=== PATIENT | male | born 1980 | race American Indian/Alaskan Native ===

== ENCOUNTER 2016-09-26 01:46 | Emergency (ER) | payer OTHER ==
[2016-09-26 01:49] VITALS: BMI 23.7
[2016-09-26 01:56] VITALS: TEMP 98.1
--- NOTE | 2016-09-26 01:58 | ED PDOC ---
Arrival/HPI - General Chief Complaint: Substance Abuse Time Seen by Provider: 09/26/16 01:51 Historian: Patient, Police - History of Present Illness Narrative History of Present Illness (Text): 09/26/16 01:58 Vladislav Fu Sr is a 36 year old male, whose past medical history includes substance abuse, who presents to the ED brought in by [facility] and EMS for heroin overdose. As per police, patient was found unresponsive on the floor tonight and given Narcan in the field with immediate response. Patient is awake and alert in the ED. Patient states he does not remember the incident and admits to using IV heroin tonight. Patient states he feels fine currently. Patient denies any suicidal ideation, homicidal ideation, fever, chills, chest pain, shortness of breath, nausea, vomiting, diarrhea, urinary symptoms, back pain, neck pain, headache, dizziness, or any other complaints. Time/Duration: Other (tonight) Symptom Onset: Gradual Symptom Course: Improving Activities at Onset: Other (IV drug abuse) Context: Home Past Medical History - Provider Review Nursing Documentation Reviewed: Yes - Psychiatric Hx Depression: Yes Hx Emotional Abuse: No Hx Physical Abuse: No Hx Substance Use: Yes - Past Surgical History Past Surgical History: No Previous - Suicidal Assessment Feels Threatened In Home Enviroment: No Family/Social History - Physician Review Nursing Documentation Reviewed: Yes Family/Social History: No Known Family HX Smoking Status: Unknown If Ever Smoked Hx Alcohol Use: No Hx Substance Use: Yes Allergies/Home Meds Allergies/Adverse Reactions: Allergies No Known Allergies Allergy (Verified 06/26/12 12:15) Home Medications: Home Meds Medication Instructions Recorded Confirmed No Known Home Med 06/26/12 09/26/16 Review of Systems - Physician Review All systems were reviewed & negative as marked: Yes - Review of Systems Constitutional: Normal. absent: Fevers Eyes: Normal ENT: Normal Respiratory: Normal. absent: SOB, Cough Cardiovascular: Normal. absent: Chest Pain Gastrointestinal: Normal. absent: Abdominal Pain, Diarrhea, Nausea, Vomiting Genitourinary Male: Normal. absent: Dysuria, Frequency, Hematuria, Urinary Output Changes Musculoskeletal: Normal. absent: Back Pain, Neck Pain Skin: Normal. absent: Rash Neurological: Normal. absent: Headache, Dizziness Endocrine: Normal Hemo/Lymphatic: Normal Psychiatric: Other (+substance abuse). absent: Suicidal Ideation Physical Exam Vital Signs Reviewed: Yes Vital Signs Temp Pulse Resp BP Pulse Ox 09/26/16 05:03 100 H 14 156/86 H 94 L 09/26/16 04:05 103 H 18 105/66 94 L 09/26/16 03:35 102 H 20 112/65 95 09/26/16 02:36 95 H 18 120/83 94 L 09/26/16 01:56 98.1 F 99 H 14 120/83 96 Temperature: Afebrile Blood Pressure: Normal Pulse: Regular Respiratory Rate: Normal Appearance: Positive for: Well-Appearing, Non-Toxic, Comfortable Pain Distress: None Mental Status: Positive for: Alert and Oriented X 3 - Systems Exam Head: Present: Atraumatic, Normocephalic Pupils: Present: PERRL Extroacular Muscles: Present: EOMI Conjunctiva: Present: Normal Mouth: Present: Moist Mucous Membranes Neck: Present: Normal Range of Motion Respiratory/Chest: Present: Clear to Auscultation, Good Air Exchange. No: Respiratory Distress, Accessory Muscle Use Cardiovascular: Present: Regular Rate and Rhythm, Normal S1, S2. No: Murmurs Abdomen: Present: Normal Bowel Sounds. No: Tenderness, Distention, Peritoneal Signs Back: Present: Normal Inspection Upper Extremity: Present: Normal Inspection. No: Cyanosis, Edema Lower Extremity: Present: Normal Inspection. No: Edema Neurological: Present: GCS=15, CN II-XII Intact, Speech Normal Skin: Present: Warm, Dry, Normal Color. No: Rashes Psychiatric: Present: Alert, Oriented x 3, Normal Insight, Normal Concentration Medical Decision Making ED Course and Treatment: 09/26/16 01:58 Impression: 36 year old male brought in for heroin overdose. Differential Diagnosis include but are not limited to: substance abuse vs. overdose Plan: -- EKG -- IV fluids -- Reassess and disposition Prior Visits: Notes and results from previous visits were reviewed. Progress Notes: 09/26/16 02:04 Reviewed EKG, NSR at [address]-segment elevations or depressions, no T- wave inversions, normal intervals. - Lab Interpretations I have reviewed the lab results: Yes - EKG Interpretation Interpreted by ED Physician: Yes Type: 12 lead EKG - Medication Orders Current Medication Orders: Discontinued Medications Sodium Chloride (Sodium Chloride 0.9%) 1,000 mls @ 100 mls/hr IV .Q10H STA Stop: 09/26/16 11:58 Last Admin: 09/26/16 02:35 Dose: 100 MLS/HR eMAR Start Stop Document 09/26/16 02:35 [email or web address] (Rec: 09/26/16 02:35 [email or web address] [id number]) Intravenous Solution Start Date 09/26/16 Start Time 02:35 End Date 09/26/16 Naloxone HCl 10 mg/ Sodium (Chloride) 1,025 mls @ 61.5 mls/hr IV .[id number] ONE PRN Reason: 0.6 MG/HR Stop: 09/26/16 20:42 Last Admin: 09/26/16 04:36 Dose: Not Given Non-Admin Reason: Patient Refused ED OBSERVATION Date of observation admission: 09/26/16 Time of observation admission: 02:00 - Observation admission statement Patient is being placed in observation because:: heroin overdose - Goals of Observation Goals of observation are:: observe respiratory status - Progress Note Progress Note: 09/26/16 02:00 Pt resting comfortably, no new complaints. 09/26/16 04:00 Pt somnolent, will order Narcan, labs, alcohol level, urinalysis, urine drug screen, and CT Head. Case discussed with medical coding auditor operations architect, who is aware and agrees with plan. Case discussed with Dr. Shoemaker, who is aware and agrees with plan. Accepts pt in to hospitalist service. Pt will go to Telemetry observation for heroine overdose. 09/26/16 04:35 RN reports pt is refusing bloodwork or any further workup. - Scribe Statement The provider has reviewed the documentation as recorded by the Chasity Rosenbaum Provider Attestation: All medical record entries made by the Chasity were at my direction and personally dictated by me. I have reviewed the chart and agree that the record accurately reflects my personal performance of the history, physical exam, medical decision making, and the department course for this patient. I have also personally directed, reviewed, and agree with the discharge instructions and disposition. Disposition/Present on Arrival - Present on Arrival Any Indicators Present on Arrival: No History of DVT/PE: No History of Uncontrolled Diabetes: No Urinary Catheter: No History of Decub. Ulcer: No History Surgical Site Infection Following: None - Disposition Have Diagnosis and Disposition been Completed?: Yes Diagnosis: Substance abuse Disposition: AGAINST MEDICAL ADVICE Disposition Time: 04:00 Condition: FAIR
[2016-09-26] MEDS ORDERED: Sodium Chloride 0.9% 1,000 ML IV STA (01:59)
[2016-09-26] MEDS ORDERED: Morphine 4 mg/ml ISec IVP STA (01:59)
[2016-09-26] MEDS ORDERED: Nitroglycerin 2% Ointment Foilpak UD TOP STA (02:00)
[2016-09-26 04:39] VITALS: O2SAT 94
[2016-09-26 05:06] VITALS: BP 156/86; PULSE 100; RESP 14
--- NOTE | 2016-09-26 05:15 | CP.PCM.HP ---
<Dewayne Lamas - Last Filed: 09/26/16 05:10> History of Present Illness - History of Present Illness History of Present Illness: CC: unresponsive on the ground in the field HPI: This is a 36 yo M with PMH rheumatic heart disease with unspecified valvular damage and substance abuse who was brought in by EMS due to being found down in the field with a respiration rate of 2. Patient was given Narcan in the field nasally and via injection, and recovered promptly. He admitted to injecting 2 bags of heroin today, prior to the event, and had a bruise on his head he couldn't account for. He had no recollection of falling, and was unsure whether he struck his head. In the ED, patient remained intermittently somnolent, and was to be admitted for obs after respiratory failure 2/2 heroin overdose, but he became more alert and refused all further testing and admission, opting to leave against medical advice. PMH: as above PSH: denies FHx: denies SHx: Heroin abuser, claims to have stopped years ago and recently relapsed, 2 bags injected prior to arrival Denies tobacco, denies alcohol PMD: none Present on Admission - Present on Admission Any Indicators Present on Admission: No History of DVT/PE: No History of Uncontrolled Diabetes: No Urinary Catheter: No Review of Systems - Constitutional Constitutional: absent: Chills, Fever, Weakness - EENT Eyes: absent: Blurred Vision, Change in Vision, Spots in Vision, Loss of Vision Ears: absent: Dizziness Nose/Mouth/Throat: absent: Sore Throat, Neck Pain - Cardiovascular Cardiovascular: Dyspnea (respiration rate of 2 when found down, resolved after narcan, not present at time of exam), Syncope (found down on the ground in field , resolved with narcan, no recollection of how he ended on the ground). absent : Chest Pain, Lightheadedness - Respiratory Respiratory: Dyspnea (respiration rate of 2 when found down, resolved after narcan, not present at time of exam). absent: Cough, Hemoptysis, Pain on Inspiration - Gastrointestinal Gastrointestinal: Vomiting (in the ED once). absent: Abdominal Pain, Constipation, Diarrhea, Nausea - Genitourinary Genitourinary: absent: Difficulty Urinating, Dysuria, Flank Pain, Hematuria - Musculoskeletal Musculoskeletal: absent: Muscle Weakness, Neck Pain, Numbness, Radiating Pain into Limb - Integumentary Integumentary: absent: Pruritus, Rash - Neurological Neurological: Syncope (found down on the ground in field, resolved with narcan, no recollection of how he ended on the ground). absent: Dizziness, Numbness, Focal Weakness, Loss of Vision, Weakness - Psychiatric Psychiatric: absent: Anxiety - Endocrine Endocrine: absent: Fatigue, Palpitations Past Patient History - Past Social History Smoking Status: Unknown If Ever Smoked - PSYCHIATRIC Hx Depression: Yes Hx Emotional Abuse: No Hx Physical Abuse: No Hx Substance Use: Yes Meds Allergies/Adverse Reactions: Allergies Allergy/AdvReac Type Severity Reaction Status Date / Time No Known Allergies Allergy Verified 06/26/12 12:15 Physical Exam - Constitutional Appears: Well, Non-toxic, No Acute Distress Additional comments: lethargic/somnolent - Head Exam Head Exam: ATRAUMATIC, NORMAL INSPECTION, NORMOCEPHALIC - Eye Exam Eye Exam: EOMI, Normal appearance, PERRL. absent: Conjunctival injection, Scleral icterus Pupil Exam: NORMAL ACCOMODATION, PERRL. absent: Fixed, Irregular, Unequal - ENT Exam ENT Exam: Mucous Membranes Moist - Respiratory Exam Respiratory Exam: Clear to Auscultation Bilateral, NORMAL BREATHING PATTERN. absent: Accessory Muscle Use, Chest Wall Tenderness, Decreased Breath Sounds, Rales, Rhonchi, Wheezes, Respiratory Distress - Cardiovascular Exam Cardiovascular Exam: Tachycardia, REGULAR RHYTHM, +S1, +S2. absent: Bradycardia , Diastolic murmur, Irregular Rhythm, RRR, +S4, Systolic Murmur Additional comments: rapid rate regular rhythm - GI/Abdominal Exam GI & Abdominal Exam: Normal Bowel Sounds, Soft. absent: Diminished Bowel Sounds , Distended, Firm, Hyperactive Bowel Sounds, Hypoactive Bowel Sounds, Rigid, Tenderness - Extremities Exam Extremities exam: Positive for: normal inspection. Negative for: calf tenderness, pedal edema, tenderness - Neurological Exam Neurological exam: Alert (somnolent/lethargic but easily arousable and alert once aroused), Oriented x3 - Psychiatric Exam Psychiatric exam: Normal Affect, Normal Mood - Skin Skin Exam: Dry, Intact, Normal Color, Warm Results - Vital Signs Recent Vital Signs: Last Vital Signs Temp 98.1 F 09/26/16 01:56 Pulse 100 H 09/26/16 05:03 Resp 14 09/26/16 05:03 BP 156/86 H 09/26/16 05:03 Pulse Ox 94 L 09/26/16 05:03 Assessment & Plan - Assessment and Plan (Free Text) Assessment: This is a 36 yo M with H rheumatic heart disease with unspecified valvular damage and substance abuse who was brought in by EMS due to being found down in the field with a respiration rate of 2. He was to be admitted to Tele Obs for monitoring after Heroin overdose with near-respiratory failure, but he refused admission and elected to leave AMA. Plan: 1) Respiratory failure -likely 2/2 heroin overdose vs arrhythmia vs LA -resolved with administration of narcan, and patient admits to abusing 2 bags of heroin IV, so likely 2/2 drug abuse -sinus tachy on bedside monitor, otherwise normal; EKG ordered -Maintaining sats on 2 L NC, continue to monitor and titrate as needed -Given head bruise and no memory of possible fall, will get Head CT to rule out acute intracranial process -Narcan drip -Drug screen and alcohol level ordered -Patient denies intentional overdose, and denies desire for self-harm, so no need to consult Psych at this time Dispo: Admitted to Tele obs, but patient refusing, elects to leave AMA. Risks of leaving AMA, including withdrawal, respiratory distress, respiratory arrest, and were explained to patient, who expressed understanding but still elected to leave AMA. Forms signed by resident physician and patient, witnessed by nursing. Patient was instructed to return to the ED with new or worsening symptoms. He was then discharged AMA. - Date & Time Date: 09/26/16 Time: 05:25 Decision To Admit - Pt Status Changed To: Hospital Disposition Of: Observation - . Bed Request Type: Telemetry (Prior to being sent up from ED, he elected to refuse admission and leave AMA) <Selina Shoemaker - Last Filed: 09/26/16 06:14> Results - Vital Signs Recent Vital Signs: Last Vital Signs Temp 98.1 F 09/26/16 01:56 Pulse 100 H 09/26/16 05:03 Resp 14 09/26/16 05:03 BP 156/86 H 09/26/16 05:03 Pulse Ox 94 L 09/26/16 05:03 Attending/Attestation - Attestation I have personally seen and examined this patient.: Yes I have fully participated in the care of the patient.: Yes I have reviewed all pertinent clinical information: Yes Notes (Text): 09/26/16 06:12 Patient was seen when he was in bed # 3 in the ER. Agree with history , physical examination , assessment and plan. Patient wanted to sign out AMA. He was explained consequences , yet chose to leave. DISCHARGE DIAGNOSIS: Heroine withdrawal. Head contusion. Non complaint. Left against medical advice.
--- NOTE | 2016-09-26 13:04 | CARD ---
APPROVED REPORT EKG Measurement Heart [id number] <Conclusion> Normal sinus rhythm Normal ECG
== END 2016-09-26 05:09 | disposition left against medical advice (07) ==
LOC: ED 01:46 → UNDOADMOB 02:00 → EROBSV 02:00 → ED 04:55
DX: F11.10 Opioid abuse, uncomplicated (principal)
CPT/HCPCS: 93005; 99285; J7040

== ENCOUNTER 2017-02-09 19:06 | Emergency (ER) | payer SELFPAY ==
[2017-02-09 19:07] VITALS: BMI 23.7
[2017-02-09 19:15] VITALS: TEMP 98.9
--- NOTE | 2017-02-09 19:24 | ED PDOC ---
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 His friend became concerned and called the police and 911 and the patient was brought to the emergency department. He was not given Narcan. He is lethargic but easily aroused. He is oriented 3. He is not interested in rehabilitation. He reports he has been tested for HIV and is negative. He injects. He denies other drugs. He is a smoker. Denies alcohol. He denies depression or suicidal or homicidal ideation. Past Medical History - Psychiatric Hx Depression: Yes Hx Emotional Abuse: No Hx Physical Abuse: No Hx Substance Use: Yes (marijuana, heroin, cocaine) - Past Surgical History Past Surgical History: No Previous - Suicidal Assessment Feels Threatened In Home Enviroment: No Family/Social History - Physician Review Nursing Documentation Reviewed: Yes Family/Social History: Unknown Family HX Smoking Status: Heavy Smoker > 10 Cigarettes Daily Hx Alcohol Use: Yes Frequency of alcohol use: Socially Hx Substance Use: Yes (marijuana, heroin, cocaine) Allergies/Home Meds Allergies/Adverse Reactions: Allergies No Known Allergies Allergy (Verified 06/26/12 12:15) Home Medications: Home Meds Medication Instructions Recorded Confirmed No Known Home Med 06/26/12 02/09/17 Review of Systems - Physician Review All systems were reviewed & negative as marked: Yes - Review of Systems Constitutional: Normal Respiratory: Normal Cardiovascular: Normal Gastrointestinal: Normal Genitourinary Male: Normal Neurological: Normal Physical Exam Vital Signs Temp Pulse Resp BP Pulse Ox 02/09/17 19:14 98.9 F 80 14 107/52 L 90 L Temperature: Afebrile Blood Pressure: Normal Pulse: Regular Respiratory Rate: Normal Appearance: Positive for: Well-Appearing, Non-Toxic, Comfortable Pain Distress: None Mental Status: Positive for: Alert and Oriented X 3 - Systems Exam Head: Present: Atraumatic, Normocephalic Mouth: Present: Moist Mucous Membranes Pharnyx: No: ERYTHEMA, EXUDATE, TONSILS ENLARGED Neck: Present: Normal Range of Motion Respiratory/Chest: Present: Clear to Auscultation, Good Air Exchange, Decreased Breath Sounds. No: Respiratory Distress, Accessory Muscle Use Cardiovascular: Present: Regular Rate and Rhythm, Normal S1, S2. No: Murmurs Abdomen: Present: Normal Bowel Sounds. No: Tenderness, Distention, Peritoneal Signs Upper Extremity: Present: Normal Inspection. No: Cyanosis, Edema Lower Extremity: Present: Normal Inspection. No: Edema Neurological: Present: GCS=15, CN II-XII Intact, Speech Normal, Motor Func Grossly Intact Skin: Present: Warm, Dry, Normal Color. No: Rashes Psychiatric: Present: Alert, Oriented x 3, Normal Insight, Normal Concentration , Intoxicated Medical Decision Making ED Course and Treatment: 02/09/17 19:24 He will be watched in the department until he boni up a little more prior to discharge.. 02/09/17 21:43 Patient is awake and alert and has eaten and is wandering about the emergency department and will be discharged home Disposition/Present on Arrival - Present on Arrival Any Indicators Present on Arrival: No History of DVT/PE: No History of Uncontrolled Diabetes: No Urinary Catheter: No History of Decub. Ulcer: No History Surgical Site Infection Following: None - Disposition Have Diagnosis and Disposition been Completed?: Yes Diagnosis: Substance abuse Disposition: HOME/ ROUTINE Disposition Time: 21:43 Patient Plan: Discharge Condition: GOOD Discharge Instructions (ExitCare): Polysubstance Abuse (ED) Forms: [employer] (Tajik)
[2017-02-09 22:02] VITALS: BP 115/68; PULSE 75; RESP 16; O2SAT 95
== END 2017-02-09 22:00 | disposition home or self-care (01) ==
LOC: ED 19:06
DX: F19.10 Other psychoactive substance abuse, uncomplicated (principal)